=== PATIENT | male | born 1985 | race Caucasian/White ===

== ENCOUNTER 2019-02-06 19:59 | Emergency (ER) | payer MEDICAID, OTHER ==
[~2019-02-06] VITALS: Ht 188 cm; Wt 199.6 kg
[2019-02-06 20:51] LABS: Urine Bacteria NONE SEEN /hpf (None Seen); Urine Blood 2+ /uL (Negative); Urine Mucus FEW (None Seen); Urine Specific Gravity 1.026 (1.001-1.035); Urine WBC 1 /hpf (0 - 3)
[2019-02-06 21:05] LABS: Basophils # (auto) 0.1 uL; Basophils % (auto) 0.6 % (0.0-2.0); Eosinophils # (auto) 0.2 uL; Eosinophils % (auto) 1.6 % (0.0-7.0); Monocytes # (auto) 1.4 uL; Red Cell Distribution Width 15.2 % (11.8-14.3)
[2019-02-06 21:08] LABS: Hematocrit 43.4 % (41.0-53.0); Lymphocytes # (auto) 2.6 uL; Lymphocytes % (auto) 20.3 % (10.0-50.0); Mean Corpuscular Hemoglobin 25.9 pg (28.0-32.0); Mean Corpuscular Hgb Conc. 32.3 g/dL (32.0-36.0); Monocytes % (auto) 11.1 % (0.0-12.0); Neutrophils # (auto) 8.5 uL; Neutrophils % (auto) 66.4 % (37.0-80.0); Platelet Count (auto) 377 10^3/uL (140-450); Red Blood Cells 5.43 10^6/uL (4.5-5.90); White Blood Cell 12.7 10^3/uL (4.4-10.8)
[2019-02-06 21:20] LABS: Albumin 3.7 g/dL (3.4-5.0); BUN/Creatinine Ratio 13.4; Calcium 8.6 mg/dL (8.5-10.1); Potassium 4.2 mmol/L (3.5-5.1)
[2019-02-06 21:23] LABS: Bilirubin, Total 0.5 mg/dL (0.2-1.0); Total Protein 8.2 g/dL (6.4-8.2)
[2019-02-07] MEDS ORDERED: ONDANSETRON HCL 4 MG/2 ML VIAL IV ONE (03:15)
[2019-02-07] MEDS ORDERED: HYDROmorphone HCL 2 MG/ML VL IV ONE (03:15)
[2019-02-07 03:57] VITALS: BP 148/82
== END 2019-02-07 05:17 | disposition home or self-care (01) ==
LOC: ER 20:03
DX: R10.84 Generalized abdominal pain (principal); R11.2 Nausea with vomiting, unspecified; J45.909 Unspecified asthma, uncomplicated; E11.9 Type 2 diabetes mellitus without complications; K21.9 Gastro-esophageal reflux disease without esophagitis; I10 Essential (primary) hypertension
CPT/HCPCS: 36415; 80053; 81001; 82962; 83690; 85025; 96374; 96375; 99283; J1170; J2405